=== PATIENT | male | born 1985 | race Caucasian/White ===

== ENCOUNTER → 2020-06-03 16:02 | Outpatient (BNVA) | payer OTHER, SELFPAY | PROVIDERS: Visit Provider Dermatology | DX: D48.9 Neoplasm of uncertain behavior, unspecified (principal) | CPT/HCPCS: 88304 ==

== ENCOUNTER 2022-07-20 18:12 | Outpatient (CLI) | payer OTHER, SELFPAY ==
[2022-07-20] MEDS: tuberculin 5 unit/0.1 mL (per dose) INTRADERMA (18:33)
== END 2022-07-20 18:13 | disposition home or self-care (01) ==
PROVIDERS: Visit Provider Family Medicine
DX: Z20.1 Contact with and (suspected) exposure to tuberculosis (principal)